=== PATIENT | female | born 1965 | race Two or more races ===

== ENCOUNTER 2018-02-28 09:02 | Outpatient (CLI) | payer OTHER | END 2018-02-28 10:00 | disposition home or self-care (01) | LOC: NUCLEAR 09:02 | DX: R10.84 Generalized abdominal pain (principal); K44.9 Diaphragmatic hernia without obstruction or gangrene; K30 Functional dyspepsia; K29.70 Gastritis, unspecified, without bleeding; K21.9 Gastro-esophageal reflux disease without esophagitis; R12 Heartburn; K76.89 Other specified diseases of liver; K20.8 Other esophagitis | CPT/HCPCS: 78264; A9541 ==